=== PATIENT | female | born 2000 | race Caucasian/White ===

== ENCOUNTER 2023-07-12 20:30 | Emergency (ER) | payer OTHER ==
[~2023-07-12] VITALS: Ht 162.6 cm; Wt 56.7 kg
[2023-07-12 20:37] VITALS: BP 154/100
== END 2023-07-12 22:34 | disposition left against medical advice (07) ==
LOC: ER 20:30
DX: R45.89 Other symptoms and signs involving emotional state (principal); Z53.29 Procedure and treatment not carried out because of patient's decision for other reasons
CPT/HCPCS: 99281

== ENCOUNTER → 2023-10-08 | Outpatient (CLI) | payer SELFPAY | END | disposition home or self-care (01) | LOC: LAB SHORT 11:24 → LAB 11:24 | DX: N39.0 Urinary tract infection, site not specified (principal) | CPT/HCPCS: 87086 ==

== ENCOUNTER → 2024-07-19 | Outpatient (CLI) | payer BC | END | disposition home or self-care (01) | LOC: LAB 12:19 → LAB SHORT 12:19 | DX: R82.90 Unspecified abnormal findings in urine (principal) | CPT/HCPCS: 87086 ==